=== PATIENT | male | born 1940 | race Two or more races ===

== ENCOUNTER 2016-10-04 08:35 | Emergency (ER) | payer OTHER ==
[~2016-10-04] VITALS: Ht 167.6 cm; Wt 79.4 kg
[~2016-10-04 08:35] MED LIST: ASPI81CH49 PO; LEVO75TA50 PO; LISI-646 PO; LOVA20TA4 PO; TRIA75TA55 PO
[2016-10-04 08:49] VITALS: BP 120/72
[2016-10-04] MEDS ORDERED: SODIUM CHLORIDE 0.9% 1,000 ML IV ONE (09:49)
[2016-10-04 10:18] LABS: Basophils # (auto) 0 uL; Basophils % (auto) 0.2 % (0.0-2.0); Eosinophils # (auto) 0 uL; Eosinophils % (auto) 0.2 % (0.0-7.0); Lymphocytes # (auto) 1.5 uL; Lymphocytes % (auto) 16.1 % (10.0-50.0); Mean Corpuscular Hemoglobin 32.2 pg (28.0-32.0); Mean Corpuscular Hgb Conc. 32.7 g/dL (32.0-36.0); Mean Corpuscular Volume 98.4 fL (80.0-100.0); Mean Platelet Volume 8.9 fL (7.4-10.4); Monocytes # (auto) 0.7 uL; Monocytes % (auto) 7.7 % (0.0-12.0); Neutrophils # (auto) 6.9 uL; Neutrophils % (auto) 75.8 % (37.0-80.0); Platelet Count (auto) 239 10^3/uL (140-450); Red Cell Distribution Width 15.3 % (11.6-16.0)
[2016-10-04] MEDS ORDERED: MORPHINE SULF INJ 2 MG/ML SYRINGE 1ML ONE (10:19)
[2016-10-04] MEDS ORDERED: ASPirin 81 mg TAB PO ONE (10:30)
[2016-10-04] MEDS ORDERED: MORPHINE SULF INJ 2 MG/ML SYRINGE 1ML IV ONE (10:30)
[2016-10-04 10:36] LABS: Albumin 3.3 g/dL (3.4-5.0); BUN/Creatinine Ratio 13.1; Bilirubin, Total 0.8 mg/dL (0.2-1.0); Potassium 4.2 mmol/L (3.5-5.1); Total Protein 7.8 g/dL (6.4-8.2)
== END 2016-10-04 13:09 | disposition home or self-care (01) ==
LOC: EDUNIT# 08:35 → ER 08:43
DX: T14.8 Other injury of unspecified body region (principal); R07.9 Chest pain, unspecified; M25.511 Pain in right shoulder; M19.90 Unspecified osteoarthritis, unspecified site; M25.562 Pain in left knee; E78.5 Hyperlipidemia, unspecified; I12.9 Hypertensive chronic kidney disease with stage 1 through stage 4 chronic kidney disease, or unspecified chronic kidney disease; E11.22 Type 2 diabetes mellitus with diabetic chronic kidney disease; N18.9 Chronic kidney disease, unspecified; V43.52XA Car driver injured in collision with other type car in traffic accident, initial encounter; Y93.9 Activity, unspecified; Y99.9 Unspecified external cause status; Y92.9 Unspecified place or not applicable
CPT/HCPCS: 36415; 71010; 73030; 73564; 80053; 84484; 85025; 85049; 93005; 96361; 96374; 99285; J2270; J7030

== ENCOUNTER 2018-05-30 09:39 | Inpatient (IN) | payer OTHER ==
[~2018-05-30] VITALS: Ht 170.2 cm; Wt 92.8 kg
[2018-05-30 10:45] LABS: Basophils # (auto) 0 uL; Basophils % (auto) 0.2 % (0.0-2.0); Eosinophils # (auto) 0 uL; Hematocrit 46.9 % (41.0-53.0); Hemoglobin 15.7 g/dL (13.5-17.5); Lymphocytes # (auto) 0.6 uL; Lymphocytes % (auto) 4.5 % (10.0-50.0); Mean Corpuscular Hemoglobin 33.1 pg (28.0-32.0); Mean Corpuscular Hgb Conc. 33.5 g/dL (32.0-36.0); Mean Corpuscular Volume 98.9 fL (80.0-100.0); Monocytes # (auto) 0.5 uL; Monocytes % (auto) 3.8 % (0.0-12.0); Neutrophils # (auto) 12.5 uL; Neutrophils % (auto) 91.5 % (37.0-80.0); Nucleated Red Blood Cells % 0.1 %; Platelet Count (auto) 193 10^3/uL (140-450); Red Blood Cells 4.74 10^6/uL (4.5-5.90); White Blood Cell 13.6 10^3/uL (4.4-10.8)
[2018-05-30 11:10] LABS: Lactic Acid w/Reflex 2.1 mmol/L (0.4-2.0)
[2018-05-30 11:12] LABS: Alanine Aminotransferase 32 U/L (16-61); Albumin 3.3 g/dL (3.4-5.0); Alkaline Phosphatase 66 U/L (45-117); Anion Gap 8 (5-15); Aspartate Aminotransferase 22 U/L (15-37); BUN/Creatinine Ratio 17.3; Bilirubin, Total 1.4 mg/dL (0.2-1.0); Blood Urea Nitrogen 27 mg/dL (7-18); Carbon Dioxide 20 mmol/L (21-32); Chloride 108 mmol/L (98-107); GFR African American 55 mL/min; GFR Non-African American 46 mL/min; Glucose 100 mg/dL (74-106); Magnesium 2.2 mg/dL (1.6-2.6); Potassium 3.6 mmol/L (3.5-5.1); Sodium 136 mmol/L (136-145); Total Protein 8.5 g/dL (6.4-8.2)
[2018-05-30 11:34] LABS: Urine Bacteria MANY /hpf (None Seen); Urine Blood 3+ /uL (Negative); Urine Mucus FEW (None Seen); Urine Specific Gravity 1.027 (1.001-1.035); Urine WBC 900 /hpf (0 - 3); Urine WBC Clumps PRESENT /hpf (None Seen)
[2018-05-30] MEDS ORDERED: LACTULOSE 20Gm/30ML SOLN PO PRN (12:45)
[2018-05-30] MEDS ORDERED: HYDROcodone-ACET 5/325MG TAB PO PRN (12:45)
[2018-05-30] MEDS ORDERED: TEMAZEPAM 15 MG CAP PO PRN (12:45)
[2018-05-30] MEDS ORDERED: NITROGLYCERIN 0.4 MG SL TAB SL PRN (12:45)
[2018-05-30] MEDS ORDERED: LORazepam 0.5 MG TAB PO PRN (12:45)
[2018-05-30] MEDS ORDERED: ONDANSETRON HCL 4 MG/2 ML VIAL IV PRN (12:45)
[2018-05-30] MEDS ORDERED: cefTRIAXone 1GM/10ml IVPUSH 10 ML IV ONE (12:45)
[2018-05-30] MEDS ORDERED: MORPHINE SULF INJ 2 MG/ML SYRINGE 1ML IV PRN ×2 (12:45)
[2018-05-30] MEDS ORDERED: ACETAMINOPHEN 500 MG TAB PO PRN (12:45)
[2018-05-30] MEDS: SODIUM CHLORIDE 0.9% 1,000 ML IV SCH ×2 (12:58→22:19)
[2018-05-30] MEDS ORDERED: DEXTROSE (50%) 50ML SYRG IV PRN (13:15)
[2018-05-30] MEDS: InsuLIN REG 1unit/0.01ml Soln (100units/ml) SC SCH ×2 (17:00→22:00)
[2018-05-30] MEDS: ACCU-CHEK COMFORT CURVE STRIP VI SCH ×2 (17:18→22:19)
[2018-05-30 20:00] LABS: Hemoglobin 14.1 g/dL (13.5-17.5)
[2018-05-30 21:57] VITALS: BP 99/58
[2018-05-30] MEDS ORDERED: ATORVASTATIN 20 MG TAB PO SCH (22:00)
[2018-05-30] MEDS: METOPROLOL TARTRATE 25 MG TAB PO SCH (22:18)
[2018-05-31 00:55] LABS: Hematocrit 39.9 % (41.0-53.0); Hemoglobin 13.2 g/dL (13.5-17.5)
[2018-05-31 05:00] VITALS: BP 90/59
[2018-05-31 05:57] LABS: Hematocrit 39.6 % (41.0-53.0); Hemoglobin 13.1 g/dL (13.5-17.5)
[2018-05-31] MEDS: ACCU-CHEK COMFORT CURVE STRIP VI SCH (06:19)
[2018-05-31] MEDS: InsuLIN REG 1unit/0.01ml Soln (100units/ml) SC SCH (06:19)
[2018-05-31 06:41] LABS: Albumin 2.3 g/dL (3.4-5.0); Calcium 8.7 mg/dL (8.5-10.1); Potassium 3.6 mmol/L (3.5-5.1); Total Protein 6.3 g/dL (6.4-8.2)
[2018-05-31] MEDS: SODIUM CHLORIDE 0.9% 1,000 ML IV SCH (08:17)
[2018-05-31 09:00] VITALS: BP 98/60
[2018-05-31] MEDS ORDERED: cefTRIAXone 1GM/10ml IVPUSH 10 ML IV SCH (09:00)
[2018-05-31] MEDS ORDERED: NITROGLYCERIN 0.2MG/HR TOPICAL PATCH TD SCH (10:00)
[2018-05-31] MEDS ORDERED: PANTOPRAZOLE 40 MG TAB PO SCH (10:00)
[2018-05-31] MEDS: METOPROLOL TARTRATE 25 MG TAB PO SCH (10:09)
[2018-05-31 13:00] VITALS: BP 100/64
== END 2018-05-31 15:00 | disposition home or self-care (01) | DRG 872 ==
LOC: ER 09:39 → TELE 09:40 → TELE-CENTR 20:33
PROVIDERS: ADMIT Internal Medicine; ATTEND Internal Medicine Geriatric Medicine
DX: A41.9 Sepsis, unspecified organism (principal); I13.0 Hypertensive heart and chronic kidney disease with heart failure and stage 1 through stage 4 chronic kidney disease, or unspecified chronic kidney disease; N39.0 Urinary tract infection, site not specified; N40.0 Benign prostatic hyperplasia without lower urinary tract symptoms; E11.22 Type 2 diabetes mellitus with diabetic chronic kidney disease; N18.9 Chronic kidney disease, unspecified; E78.5 Hyperlipidemia, unspecified; I50.9 Heart failure, unspecified; B96.20 Unspecified Escherichia coli [E. coli] as the cause of diseases classified elsewhere; Z79.899 Other long term (current) drug therapy; Z79.82 Long term (current) use of aspirin
CPT/HCPCS: 36415; 71046; 76775; 80053; 80061; 81001; 82550; 82962; 83036; 83605; 83735; 83880; 84443; 84484; 85014; 85018; 85025; 85652; 86141; 87040; 87086; 87088; 87186; 93005; 94761; 96361; 96374; J0696

== ENCOUNTER 2022-07-06 09:50 | Inpatient (IN) | payer OTHER ==
[~2022-07-06] VITALS: Ht 170.2 cm; Wt 96.6 kg
[~2022-07-06 09:50] MED LIST changes: +LEV75T PO; -LEVO75TA50 PO; -LISI-646 PO; +LISI20TA28 PO
[2022-07-06 11:25] LABS: Albumin 3.4 g/dL (3.4-5.0); Calcium 9.8 mg/dL (8.5-10.1); Potassium 4.1 mmol/L (3.5-5.1)
[2022-07-06 11:27] LABS: BUN/Creatinine Ratio 10.8; Lactic Acid w/Reflex 3.8 mmol/L (0.4-2.0)
[2022-07-06 11:29] LABS: Bilirubin, Total 1.7 mg/dL (0.2-1.0)
[2022-07-06] MEDS ORDERED: PROMETHAZINE HCL 25 MG/ML 1ML IV ONE (11:45)
[2022-07-06] MEDS ORDERED: TAMSULOSIN HYDROCHLORIDE 0.4 MG CAP PO ONE (11:45)
[2022-07-06] MEDS ORDERED: HYDROmorphone HCL 2 MG/ML VL/or syr IV ONE (11:45)
[2022-07-06 12:08] LABS: Basophils # (auto) 0 10 ^3/uL (0-0.2); Basophils % (auto) 0.1 % (0.0-2.0); Eosinophils # (auto) 0 10 ^3/uL (0-0.8); Hematocrit 49.7 % (41.0-53.0); Hemoglobin 16.4 g/dL (13.5-17.5); Lymphocytes # (auto) 0.9 10 ^3/uL (0.4-5.4); Lymphocytes % (auto) 9.2 % (10.0-50.0); Mean Corpuscular Hgb Conc. 33.1 g/dL (32.0-36.0); Mean Corpuscular Volume 99.8 fL (80.0-100.0); Monocytes # (auto) 0.2 10 ^3/uL (0-1.3); Monocytes % (auto) 1.7 % (0.0-12.0); Neutrophils # (auto) 8.9 10 ^3/uL (1.6-8.6); Nucleated Red Blood Cells % 0.2 %; Red Blood Cells 4.98 10^6/uL (4.5-5.90); Red Cell Distribution Width 14.7 % (11.8-14.3)
[2022-07-06] MEDS ORDERED: SODIUM CHLORIDE 0.9% 1,000 ML IV ONE ×2 (15:00→19:30)
[2022-07-06 16:51] LABS: Urine Bacteria NONE SEEN /hpf (None Seen); Urine Blood 3+ /uL (Negative); Urine Mucus FEW (None Seen); Urine Specific Gravity 1.026 (1.001-1.035); Urine WBC 404 /hpf (0 - 3); Urine WBC Clumps PRESENT /hpf (None Seen)
[2022-07-06] MEDS ORDERED: cefTRIAXone 1GM/50ML D5W 50 ML IV ONE (18:15)
[2022-07-06] MEDS ORDERED: MORPHINE SULFATE INJ 2 MG/ml SYRG IV PRN (20:15)
[2022-07-06] MEDS ORDERED: NITROGLYCERIN 0.4 MG SL TAB SL PRN (20:15)
[2022-07-06 21:36] LABS: Cholesterol 110 mg/dL (< 200); HDL Cholesterol 47 mg/dL (40-59); LDL Cholesterol 55 mg/dL (< 100); Triglycerides 100 mg/dL (< 150)
[2022-07-06] MEDS: PRAVASTATIN SODIUM 20 MG TAB PO SCH (22:28)
[2022-07-06] MEDS ORDERED: TEMAZEPAM 15 MG CAP PO PRN (22:30)
[2022-07-06] MEDS: MORPHINE SULFATE INJ 2 MG/ml SYRG IV PRN (22:45)
[2022-07-07 05:24] LABS: Basophils # (auto) 0 10 ^3/uL (0-0.2); Basophils % (auto) 0.2 % (0.0-2.0); Eosinophils # (auto) 0 10 ^3/uL (0-0.8); Hematocrit 42.6 % (41.0-53.0); Hemoglobin 14.4 g/dL (13.5-17.5); Lymphocytes # (auto) 1.3 10 ^3/uL (0.4-5.4); Lymphocytes % (auto) 8.5 % (10.0-50.0); Mean Corpuscular Hemoglobin 33.5 pg (28.0-32.0); Mean Corpuscular Hgb Conc. 33.8 g/dL (32.0-36.0); Mean Corpuscular Volume 99.2 fL (80.0-100.0); Monocytes # (auto) 0.6 10 ^3/uL (0-1.3); Neutrophils % (auto) 87.3 % (37.0-80.0); Red Blood Cells 4.29 10^6/uL (4.5-5.90); Red Cell Distribution Width 14.9 % (11.8-14.3); White Blood Cell 14.9 10^3/uL (4.4-10.8)
[2022-07-07] MEDS: SODIUM CHLORIDE 0.9% 1,000 ML IV SCH ×3 (05:29→21:51)
[2022-07-07 05:36] LABS: Potassium 4.1 mmol/L (3.5-5.1)
[2022-07-07 05:43] LABS: Albumin 2.6 g/dL (3.4-5.0); BUN/Creatinine Ratio 15.1; Bilirubin, Total 1.3 mg/dL (0.2-1.0)
[2022-07-07] MEDS: cefTRIAXone 1GM/50ML D5W 50 ML IV SCH (09:28)
[2022-07-07] MEDS: LISINOPRIL 20 MG TAB PO SCH (10:00)
[2022-07-07] MEDS: TRIAMTERENE/HCTZ 75/50MG TABLET PO SCH (10:00)
[2022-07-07] MEDS: ASPirin 81 mg TAB PO SCH (10:02)
[2022-07-07] MEDS: LEVOTHYROXINE SODIUM 25 MCG TAB PO SCH (10:18)
[2022-07-07 10:30] VITALS: BP 132/72
[2022-07-07 13:00] VITALS: BP 132/72
[2022-07-07 17:31] VITALS: BP 112/63
[2022-07-07] MEDS: MORPHINE SULFATE INJ 2 MG/ml SYRG IV PRN (18:33)
[2022-07-07 21:22] VITALS: BP 101/64
[2022-07-07] MEDS: PRAVASTATIN SODIUM 20 MG TAB PO SCH (21:51)
[2022-07-08 04:55] VITALS: BP 128/62
[2022-07-08 06:00] LABS: BUN/Creatinine Ratio 15.7; Calcium 9.1 mg/dL (8.5-10.1); Potassium 3.9 mmol/L (3.5-5.1)
[2022-07-08 06:35] LABS: Basophils # (auto) 0 10 ^3/uL (0-0.2); Basophils % (auto) 0.2 % (0.0-2.0); Eosinophils # (auto) 0 10 ^3/uL (0-0.8); Eosinophils % (auto) 0.3 % (0.0-7.0); Hematocrit 40.6 % (41.0-53.0); Hemoglobin 13.8 g/dL (13.5-17.5); Lymphocytes # (auto) 1.5 10 ^3/uL (0.4-5.4); Lymphocytes % (auto) 13.7 % (10.0-50.0); Mean Corpuscular Hemoglobin 33.7 pg (28.0-32.0); Mean Corpuscular Volume 98.9 fL (80.0-100.0); Monocytes # (auto) 0.7 10 ^3/uL (0-1.3); Monocytes % (auto) 6.5 % (0.0-12.0); Neutrophils # (auto) 8.9 10 ^3/uL (1.6-8.6); Neutrophils % (auto) 79.3 % (37.0-80.0); Red Cell Distribution Width 15.6 % (11.8-14.3); White Blood Cell 11.3 10^3/uL (4.4-10.8)
[2022-07-08 09:00] VITALS: BP 117/73
[2022-07-08] MEDS: cefTRIAXone 1GM/50ML D5W 50 ML IV SCH (09:02)
[2022-07-08] MEDS: LEVOTHYROXINE SODIUM 25 MCG TAB PO SCH (09:02)
[2022-07-08] MEDS: ASPirin 81 mg TAB PO SCH (09:03)
[2022-07-08] MEDS: LISINOPRIL 20 MG TAB PO SCH (09:03)
[2022-07-08] MEDS: TRIAMTERENE/HCTZ 75/50MG TABLET PO SCH (09:03)
[2022-07-08] MEDS ORDERED: CIPR250T3 PO (10:15)
[2022-07-08 10:42] VITALS: BP 117/73
[2022-07-09] MEDS ORDERED: LEVO-28 PO (13:07)
[2022-07-10] MEDS ORDERED: levoFLOXacin 500 MG TAB PO SCH (10:00)
== END 2022-07-08 12:50 | disposition home health service (06) | DRG 690 ==
LOC: ER 09:50 → TELE 20:07 → TELE-CENTR 07-07 10:45
PROVIDERS: ADMIT Registered Nurse; ATTEND Internal Medicine Geriatric Medicine
DX: N39.0 Urinary tract infection, site not specified (principal); J98.11 Atelectasis; N17.9 Acute kidney failure, unspecified; E78.5 Hyperlipidemia, unspecified; E03.9 Hypothyroidism, unspecified; Z20.822 Contact with and (suspected) exposure to COVID-19; I12.9 Hypertensive chronic kidney disease with stage 1 through stage 4 chronic kidney disease, or unspecified chronic kidney disease; N18.32 Chronic kidney disease, stage 3b; N40.1 Benign prostatic hyperplasia with lower urinary tract symptoms; R33.8 Other retention of urine
CPT/HCPCS: 36415; 73502; 74176; 80048; 80053; 80061; 81001; 83036; 83605; 83880; 84443; 85025; 87040; 87086; 87088; 87186; 87426; 96361; 96365; 96366; 96375; 97163; G0378; J0696